=== PATIENT | male | born 1995 | race Caucasian/White ===

== ENCOUNTER 2018-10-29 12:12 | Observation (INO) ==
[2018-10-29] MEDS ORDERED: ZOFRAN IV ONE (12:48)
[2018-10-29] MEDS ORDERED: NS 1,000 ML IV ONE ×2 (12:48→15:29)
[2018-10-29] MEDS ORDERED: KEPPRA 1,000 MG in NS 100 ML IV ONE (12:49)
--- NOTE | 2018-10-29 12:55 | PROVIDER DOCUMENTATION ---
HPI-Neurological Disorder - General Chief Complaint: Dizziness Stated Complaint: VOMITING / DIZZY Time Seen by Provider: 10/29/18 12:27 Source: patient, family Allergies/Adverse Reactions: Patient Allergies Allergy/AdvReac Type Severity Reaction Status Date / Time No Known Allergies Allergy Verified 10/29/18 12:30 Home Medications: Home Medication List Medication Instructions Recorded Confirmed Last Taken Type Oxcarbazepine 750 mg PO QAM 02/27/16 10/29/18 Unknown History Divalproex [Depakote] 1,000 mg PO QHS 10/29/18 10/29/18 Unknown History Oxcarbazepine 900 mg PO QHS 10/29/18 10/29/18 Unknown History - History of Present Illness-Neuro Nature of Presenting Problem: reports having episodic blurred vision since yesterday, happening at work [place] in the morning. associated with n/vomiting, dizziness. denied fever chills, focal weakness. girlfriend at bedside, states that this morning when he woke up, his eyes were moving fast. history of seizure is currently on medication. Review of Systems - Adult - REVIEW OF SYSTEMS - ADULT Constitutional: reports: no symptoms reported Eyes: reports: no symptoms reported Ears, Nose, Mouth & Throat: reports: no symptoms reported Cardiovascular: reports: no symptoms reported Respiratory: reports: no symptoms reported Gastrointestinal: reports: no symptoms reported Genitourinary: reports: no symptoms reported Musculoskeletal: reports: no symptoms reported Integumentary: reports: no symptoms reported Neurological: reports: no symptoms reported Psychiatric: reports: no symptoms reported Endocrine: reports: no symptoms reported Hematologic/Lymphatic: reports: no symptoms reported Allergic/Immunologic: reports: no symptoms reported All Other Systems: Reviewed and Negative Past History - Adult - PAST MEDICAL HISTORY-ADULT Review of Records: reports: Old Records Reviewed, Nursing Assessment Review, Medications Reviewed, Social history reviewed & non-contributory. Major Childhood Illnesses: reports: denies history Cardiovascular: reports: denies history Respiratory: reports: denies history Gastrointestinal: reports: denies history Obstetrical/Gynecological: reports: denies history Genitourinary: reports: denies history Musculoskeletal: reports: denies history Neurological: reports: Seizures/Epilepsy Endocrine/Immune: reports: denies history Other Conditions: reports: denies history - IMMUNIZATION STATUS Childhood Immunizations: See Nurse Assessment Flu Vaccine: See Nurse Assessment - FAMILY HISTORY Family History: reviewed, not pertinent - SOCIAL HISTORY Smoking: denies Substance Use: none/never Alcohol Use Frequency: never Living Situation: family Physical Exam- Neurological - Physical Exam-Neuro Initial Vital Signs Reviewed: Yes General Appearance: appears well, alert, no apparent distress Eye Exam: bilateral eye: normal inspection, PERRL, EOMI HENMT: normocephalic/atraumatic, normal ENT inspection, other (slightly dry mucous membrane) Head Injury: no evidence of injury Neck: non-tender, full range of motion, supple Respiratory: chest non-tender, lungs clear, normal breath sounds Cardiovascular: normal peripheral pulses, regular rate, rhythm, no edema Abdominal Exam: normal bowel sounds, non tender, soft, no organomegaly Peripheral Pulses: radial (R): 2+, radial (L): 2+, dorsalis-pedis (R): 2+, dorsalis-pedis (L): 2+ Extremity: normal range of motion, non-tender, normal gait casualty insurance claim adjuster Exam: normal hearing, other (slow speech) Coordination/Gait: normal finger to nose, normal gait, negative Romberg's sign Motor/Sensory: no motor deficit, no sensory deficit, no pronator drift Neurologic: grossly normal, no motor/sensory deficits Integumentary: normal color, normal turgor, warm/dry Psych/Mental Status: normal mood/affect, normal thought content, normal thought process, oriented x 3 - Glascow Coma Scale Best Eye Response: (4) open spontaneously Best Verbal Response: (5) oriented Best Motor Response: (6) obeys commands Progress - PLAN OF CARE/RESULTS Progress/Plan/Lab Results: Vital Signs - 8 hr 10/29/18 12:16 10/29/18 12:35 10/29/18 13:38 Temperature 97.8 F Pulse Rate 94 H 73 Pulse Rate [Sitting] 93 H Pulse Rate [Standing] 95 H Pulse Rate [Supine] 95 H Respiratory Rate 18 16 Blood Pressure 144/90 133/77 Blood Pressure [Sitting] 139/87 Blood Pressure [Standing] 170/149 Blood Pressure [Supine] 156/89 O2 Sat by Pulse Oximetry 97 95 10/29/18 14:29 Temperature 98 F Pulse Rate 86 Pulse Rate [Sitting] Pulse Rate [Standing] Pulse Rate [Supine] Respiratory Rate 14 Blood Pressure 121/77 Blood Pressure [Sitting] Blood Pressure [Standing] Blood Pressure [Supine] O2 Sat by Pulse Oximetry 95 Laboratory Results - last 24 hr 10/29/18 10/29/18 10/29/18 12:37 12:37 12:37 WBC 11.77 H RBC 4.84 Hgb 15.1 Hct 40.8 L MCV 84.3 MCH 31.2 H MCHC 37.0 RDW Std Deviation 12.4 Plt Count 243 MPV 9.6 Immature Gran % (Auto) 0.2 Neut % (Auto) 76.5 H Lymph % (Auto) 14.7 L Mcdonald % (Auto) 8.2 Eos % (Auto) 0.3 Baso % (Auto) 0.1 Immature Gran # (Auto) 0.02 Neut # (Auto) 9.01 H Lymph # (Auto) 1.73 Mcdonald # (Auto) 0.96 H Eos # (Auto) 0.04 Baso # (Auto) 0.01 Sodium 131 L Potassium 4.3 Chloride 93 L Carbon Dioxide 25 Anion Gap 13 BUN 5 L Creatinine 0.6 L Estimated GFR/1.73 m2 > 60 BUN/Creatinine Ratio 8 Glucose 132 H POC Glucose 125 H Calculated Osmolality 262 Calcium 9.1 Lipase Urine Source Urine Color Urine Clarity Urine Turbidity Urine pH Ur Specific Clifford Urine Protein Ur Glucose (Stick) Urine Ketones Ur Ketones (Stick) Urine Blood Urine Nitrite Urine Bilirubin Urine Urobilinogen Urobilinogen Dipstick Urine Leukocytes Urine WBC (Auto) Urine RBC (Auto) U Epithel Cells (Auto) Urine Bacteria (Auto) Urine Microscopic RBC Urine WBC Urine Microscopic WBC Ur Epithelial Cells Urine Bacteria Urine Glucose Urine Opiates Screen Ur Oxycodone Screen Urine Methadone Screen Ur Methadone, Qual U Propoxyphene Qual Ur Barbiturates Screen Ur Barbituates Screen Valproic Acid Ur Tricyclics Screen Ur Phencyclidine Scrn Ur Amphetamines Screen U Methamphetamines Scrn U Benzodiazepines Scrn Urine Cocaine Screen U Cannabinoids Screen 10/29/18 10/29/18 10/29/18 12:37 12:37 13:35 WBC RBC Hgb Hct MCV MCH MCHC RDW Std Deviation Plt Count MPV Immature Gran % (Auto) Neut % (Auto) Lymph % (Auto) Mcdonald % (Auto) Eos % (Auto) Baso % (Auto) Immature Gran # (Auto) Neut # (Auto) Lymph # (Auto) Mcdonald # (Auto) Eos # (Auto) Baso # (Auto) Sodium Potassium Chloride Carbon Dioxide Anion Gap BUN Creatinine Estimated GFR/1.73 m2 BUN/Creatinine Ratio Glucose POC Glucose Calculated Osmolality Calcium Lipase 15 Urine Source Cancelled Urine Color Cancelled Urine Clarity Urine Turbidity Cancelled Urine pH Cancelled Ur Specific Clifford Cancelled Urine Protein Cancelled Ur Glucose (Stick) Cancelled Urine Ketones Ur Ketones (Stick) Cancelled Urine Blood Cancelled Urine Nitrite Cancelled Urine Bilirubin Cancelled Urine Urobilinogen Urobilinogen Dipstick Cancelled Urine Leukocytes Cancelled Urine WBC (Auto) Cancelled Urine RBC (Auto) Cancelled U Epithel Cells (Auto) Cancelled Urine Bacteria (Auto) Cancelled Urine Microscopic RBC Urine WBC Urine Microscopic WBC Ur Epithelial Cells Urine Bacteria Urine Glucose Urine Opiates Screen Ur Oxycodone Screen Urine Methadone Screen Ur Methadone, Qual U Propoxyphene Qual Ur Barbiturates Screen Ur Barbituates Screen Valproic Acid 133.20 H* Ur Tricyclics Screen Ur Phencyclidine Scrn Ur Amphetamines Screen U Methamphetamines Scrn U Benzodiazepines Scrn Urine Cocaine Screen U Cannabinoids Screen 10/29/18 10/29/18 10/29/18 13:35 13:35 13:35 WBC RBC Hgb Hct MCV MCH MCHC RDW Std Deviation Plt Count MPV Immature Gran % (Auto) Neut % (Auto) Lymph % (Auto) Mcdonald % (Auto) Eos % (Auto) Baso % (Auto) Immature Gran # (Auto) Neut # (Auto) Lymph # (Auto) Mcdonald # (Auto) Eos # (Auto) Baso # (Auto) Sodium Potassium Chloride Carbon Dioxide Anion Gap BUN Creatinine Estimated GFR/1.73 m2 BUN/Creatinine Ratio Glucose POC Glucose Calculated Osmolality Calcium Lipase Urine Source CLEAN CATCH Urine Color YELLOW Urine Clarity SLIGHTLY CLOUDY A Urine Turbidity Urine pH 6.5 Ur Specific Clifford 1.020 Urine Protein 1+(30 mg/dL) A Ur Glucose (Stick) Urine Ketones 1+(Small) A Ur Ketones (Stick) Urine Blood NEGATIVE Urine Nitrite NEGATIVE Urine Bilirubin NEGATIVE Urine Urobilinogen NORMAL Urobilinogen Dipstick Urine Leukocytes Urine WBC (Auto) Urine RBC (Auto) U Epithel Cells (Auto) Urine Bacteria (Auto) Urine Microscopic RBC Not Reportable Urine WBC TRACE A Urine Microscopic WBC 10-20 A Ur Epithelial Cells <10 Urine Bacteria 1+ Urine Glucose NEGATIVE Urine Opiates Screen Cancelled NONE DETECTED Ur Oxycodone Screen Cancelled NONE DETECTED Urine Methadone Screen NONE DETECTED Ur Methadone, Qual Cancelled U Propoxyphene Qual NONE DETECTED Ur Barbiturates Screen Cancelled Ur Barbituates Screen NONE DETECTED Valproic Acid Ur Tricyclics Screen NONE DETECTED Ur Phencyclidine Scrn Cancelled NONE DETECTED Ur Amphetamines Screen Cancelled NONE DETECTED U Methamphetamines Scrn NONE DETECTED U Benzodiazepines Scrn Cancelled NONE DETECTED Urine Cocaine Screen Cancelled NONE DETECTED U Cannabinoids Screen Cancelled PRESUMPTIVE POSITIVE A Orders Category Date Time Status Orthostatic Vital Signs NOW Care 10/29/18 12:[address] HEAD W/O CONTRAST [CT] Stat Exams 10/29/18 12:50 Completed AMMONIA [CHEM] Stat Lab 10/29/18 14:58 Uncollected BMP [BASIC METABOLIC PANEL] [CHEM] Stat Lab 10/29/18 12:37 Completed CBC WITH ELECTRONIC DIFF [HEME] Stat Lab 10/29/18 12:37 Completed Depakote [VALPROIC ACID] [TDM] Stat Lab 10/29/18 12:37 Completed LFT [HEPATIC FUNCTION] [CHEM] Stat Lab 10/29/18 13:35 Received LIPASE [CHEM] Stat Lab 10/29/18 12:[address] W/POSS RFLX CULT [URINALYSIS] Stat Lab 10/29/18 13:35 Completed URINE CULTURE [RM] Routine Lab 10/29/18 14:22 Or[address] DRUG SCREEN [address] Stat Lab 10/29/18 13:35 Completed 0.9% Sodium Chloride Inj [Ns] 1,000 ml Med 10/29/18 12:48 Discontinued IV 999 mls/hr Levetiracetam [Keppra] 1,000 mg Med 10/29/18 12:49 Discontinued 0.9% Sodium Chloride Inj [Ns] 100 ml IV NOW Ondansetron [Zofran] Med 10/29/18 12:48 Discontinued [address] [facility] - [address] , [address], [place] [address] [facility] - [address] [place] [address] Department of Imaging Patient: SILVER OLEARY ADM Date: 10/29/18 MR#: [id number] : 1995 ADM Status: PRE ER Age/Sex: 22/M Room/Bed: Loc: .ED Ordering Physician: Kathy Alvarado MD Family Physician: Alexis Valle. Reason for Procedure: dizziness __ _ Signed EXAM: CT HEAD W/O CONTRAST 10/29/2018 HISTORY: dizziness TECHNIQUE: This exam was performed using automated exposure control, adjustment of mA or kV according to patient size, and/or use of iterative reconstruction technique. COMMENT: There is no evidence of mass effect, bleed, or abnormal extra-axial fluid collection. There is mucosal thickening and fluid in some of the ethmoid air cells. The calvarium is intact. IMPRESSION: Mild ethmoid sinusitis. No evidence of acute intracranial disease. Electronically signed by Gama Valdes 10/29/2018 1:14 PM 10/29/18 1314 Interpreting Physician: Gama Valdes MD Dictated Date/Time: 10/29/18 1313 cc: Kathy Alvarado MD; Alexis Valle. Result Diagrams: 10/29/18 12:37 10/29/18 12:37 - REASSESSMENT Reassessment #1 Status: other (nad, vss, ekg normal, head ct normal. pt admits mistakenly taken one 1000mg x1 divalproex the night before the blurred vision. no level check for 1.5 yrs now. last THC used was almost ago. will contact poison control for recommendation, and admitting pt to hospital.) Reassessment #2 Status: other (supportive care from poison control, check depakote level q4hr until level off. no l-carnitine level at this point per poison control.) - CONSULTS/PCP/HOSPITALIST Notification #1 *Consult/PCP/Hospitalist*: Dr. Vasques Time Discussed: 15:00 (recommend poison control) Consult Disposition: Admit Departure - Departure Date of Disposition Decision: 10/29/18 Time of Disposition Decision: 14:23 DIAGNOSIS: Tetrahydrocannabinol (THC) use disorder, mild, abuse, Seizure, Valproic acid toxicity Disposition: HOME 01 Certified Medical Emergency: Emergent Condition: Stable Referrals and Follow-Ups: Alexis Valle [Primary Care Provider] - Call for Appoint. 1-2days Work Excuses: Return to School/Parent Work Discharge Education: Near-Syncope, [id number], Seizure, Adult, [id number] - Critical Care Note This patient required my direct & personal management of CC.: No Attestation - Physician/ JERED Attestation The physician spent face to face time with patient:: Yes Advanced Practice Provider documentation review:: Supervising physician onsite and consulted in the evaluation and care of this patient. The physician did have a face to face encounter with the patient.
--- NOTE | 2018-10-29 13:17 | Diag Imaging Result Doc PS360 ---
EXAM: CT HEAD W/O CONTRAST 10/29/2018 HISTORY: dizziness TECHNIQUE: This exam was performed using automated exposure control, adjustment of mA or kV according to patient size, and/or use of iterative reconstruction technique. COMMENT: There is no evidence of mass effect, bleed, or abnormal extra-axial fluid collection. There is mucosal thickening and fluid in some of the ethmoid air cells. The calvarium is intact. IMPRESSION: Mild ethmoid sinusitis. No evidence of acute intracranial disease. Electronically signed by Gama Valdes 10/29/2018 1:14 PM
--- NOTE | 2018-10-29 13:22 | ED EKG INTERP ---
This chart was entered by Lauren Vaughn Scribe, acting as scribe for Serena Vinson MD. EKG Interpretation - EKG Time of EKG reading by physician:: 12:34 EKG Read and Signed by:: Serena Vinson EKG Interpretation (*Must complete 3 of following elements*): Normal Rate: 87 Rhythm: normal sinus rhythm [place]: normal QRS: normal SC Interval: normal ST Wave: normal Comments: normal ECG Attestation - Physician/ JERED Attestation The physician spent face to face time with patient:: No Advanced Practice Provider documentation review:: Supervising physician onsite and consulted in the evaluation and care of this patient. The physician did not have a face to face encounter with the patient. This chart was documented by the indicated scribe, (Lauren Vaughn Scribe) and accurately reflects the services I performed and decisions made by Alisson martinez Aslam A., MD, as attested by the provider's signature.
[2018-10-29 13:30] LABS: BASO# 0.01 X1000 (0.0-0.2); BASO% 0.1 % (0.0-0.8); EOS# 0.04 X1000 (0.0-0.7); EOS% 0.3 % (0.0-10.0); HEMATOCRIT 40.8 % (42.0-52.0); HEMOGLOBIN 15.1 g/dL (14.0-18.0); IMM GRAN# 0.02 X1000 (0.0-0.04); IMM GRAN% 0.2 % (0.0-0.5); LYMPH# 1.73 X1000 (1.2-3.4); LYMPH% 14.7 % (20.5-51.1); MCH 31.2 PG (27-31); MCV 84.3 FL (81-99); MONO# 0.96 X1000 (0.11-0.59); MONO% 8.2 % (1.7-9.3); MPV 9.6 FL (7.4-10.4); NEUT# 9.01 X1000 (1.4-6.5); NEUT% 76.5 % (42.2-75.2); PLT 243 X1000 (130-400); RBC 4.84 XMIL (4.7-6.1); RDW 12.4 % (11.5-14.5); WBC 11.77 X1000 (4.8-10.8)
[2018-10-29 13:32] LABS: CHLORIDE 93 mmol/L (98-107); POTASSIUM 4.3 mmol/L (3.5-5.1); SODIUM 131 mmol/L (136-145)
[2018-10-29 13:33] LABS: AGAP 13; BUN 5 mg/dL (8-22); CALCIUM 9.1 mg/dL (8.8-10.2); COSMO 262; CREATININE 0.6 mg/dL (0.7-1.2); ESTIMATED GFR > 60; GLUCOSE 132 mg/dL (70-104); TCO2 25 mmol/L (25-35)
[2018-10-29 14:12] LABS: URINE SOURCE CLEAN CATCH
[2018-10-29 14:20] LABS: UR AMPHETAMINES QUAL NONE DETECTED (NONE DETECT); UR BARBITUATES QUAL NONE DETECTED (NONE DETECT); UR BENZODIAZEPIN QUAL NONE DETECTED (NONE DETECT); UR CANNABINOIDS QUAL PRESUMPTIVE POSITIVE (NONE DETECT); UR COCAINE QUAL NONE DETECTED (NONE DETECT); UR METHADONE QUAL NONE DETECTED (NONE DETECT); UR METHAMPHETAMINE QUAL NONE DETECTED (NONE DETECT); UR OPIATES QUAL NONE DETECTED (NONE DETECT); UR OXYCODONE QUAL NONE DETECTED (NONE DETECT); UR PCP QUAL NONE DETECTED (NONE DETECT); UR PROPOXYPHENE QUAL NONE DETECTED (NONE DETECT); UR TCA QUAL NONE DETECTED (NONE DETECT)
[2018-10-29 14:21] LABS: BILIRUBIN URINE NEGATIVE (NEGATIVE); BLOOD URINE NEGATIVE (NEGATIVE); CLARITY SLIGHTLY CLOUDY (CLEAR); COLOR YELLOW; GLUCOSE URINE NEGATIVE (NEGATIVE); KETONE URINE 1+(Small) mg/dL (NEGATIVE); PH URINE 6.5; URINE BACTERIA 1+ /HFP; URINE EPITHELIAL CELLS <10 /HPF (<10)
[2018-10-29 14:22] LABS: LEUKOCYTES URINE TRACE (NEGATIVE); NITRITE URINE NEGATIVE (NEGATIVE); PROTEIN URINE 1+(30 mg/dL) mg/dL (NEGATIVE); UROBILINOGEN URINE NORMAL
[2018-10-29 15:09] LABS: ALBUMIN 5.3 g/dL (3.5-5.0); ALKALINE PHOSPHATASE 61 U/L (32-122); DIRECT BILIRUBIN < 0.20 mg/dL (0.00-0.20); GOT 28 U/L (10-34); GPT 23 U/L (10-44); TOTAL PROTEIN 7.8 g/dL (6.3-8.3)
[2018-10-29 15:22] LABS: BLOOD TYPE ARTERIAL; SAMPLE BLOOD
[2018-10-29 15:23] LABS: BE 0.7 mmoll (-3.0-3.0); HCO3-(ACT) 25.3 mmoll (20.0-26.0); METHB 1.3 % (0.0-1.5); O2(CT) 20.4 mL/dL (15.0-23.0); O2HB 92.8 % (95.0-99.0); PCO2(98.6) 40 mmHg (35-45); PO2(98.6) 91 mmHg (60-100); SAO2 98.4 % (95.0-100.0); THB 15.6 g/dL (11.5-17.4); pH(98.6) 7.41 (7.35-7.45)
[2018-10-29 15:25] LABS: ALLEN TEST YES; MODALITY ROOM AIR
[2018-10-29] MEDS ORDERED: ZOFRAN IV PRN (15:33)
[2018-10-29] MEDS: NS 1,000 ML IV SCH ×2 (15:46→23:22)
--- NOTE | 2018-10-29 17:40 | HISTORY AND PHYSICAL ---
PRIMARY CARE PROVIDER: Dr. Alexis Valle. CHIEF COMPLAINT: The patient has intractable vomiting and dizziness. HISTORY OF PRESENT ILLNESS: This is a 22-year-old male that states he blurred vision 10/28/2018 in the morning. The patient also has had intractable nausea and vomiting with associated dizziness. He has a history of seizures and is currently taking Depakote. His laboratory findings in the emergency room were of a valproic acid of 133.2 with normal being 50 to 100. The patient was also positive for cannabinoids. CT of head showed mild ethmoid sinusitis, 0 anterior cranial disease. EKG was normal sinus rhythm with a rate of 87. PAST MEDICAL HISTORY: Includes epilepsy and seizures. PAST SURGICAL HISTORY: The patient denies any surgical history. FAMILY HISTORY: Patient states he has no relevant family history. SOCIAL HISTORY: The patient does drink occasional alcohol. States that he smokes about 5 cigarettes a day and last used marijuana approximately 1 month ago. The patient states he lives with his family. ALLERGIES: No known drug allergies. HOME MEDICATIONS: Oxcarbazepine 750 mg p.o. q.a.m., divalproex or Depakote 1000 mg p.o. at bedtime, and oxcarbazepine 900 mg p.o. at bedtime. REVIEW OF SYSTEMS: General: Patient denies fever, chills, or flu-like symptoms. HEENT: Patient denies congestion, headaches. Patient is positive for blurred vision. Patient denies neck pain or neck stiffness. Endocrine: Denies excessive thirst, urination, or intolerance to heat and cold. Cardiovascular: Patient denies palpitations, chest pain, orthopnea, or lower leg edema. Respiratory: Patient denies cough, shortness of breath on exertion, or hemoptysis. GI: The patient does state that he has had intractable nausea and vomiting. The patient denies diarrhea or constipation. : Patient denies frequency, urgency, or burning, or hematuria. Musculoskeletal: Patient denies any weakness. Neurologic: The patient was positive for dizziness. The patient denies any recent seizures. Hematologic: Patient denies bruising. Psych: Denies any history of mental illness or depression. Skin: Denies any skin rash or lesions. LABORATORY: The patient's WBCs are 11.77, hemoglobin and hematocrit are 15.1 and 40.8. Blood gas shows a pH of 7.41, pCO2 of 40, PO2 91, HC03 of 25.3, oxyhemoglobin was 92.8. Sodium was 131, potassium of 4.3, chloride of 93, BUN of 5, and creatinine of 0.6. Glucose 132. AST 20, ALT 23. Urine was positive for +1 protein, +1 ketones, trace amount of WBCs, glucose was negative. Valproic acid was 133.20. Cannabinoid screen was presumptive positive. Patient's EKG showed normal sinus rhythm with a rate of 87. CT of the head showed mild ethmoid sinusitis, no evidence of acute intracranial disease. PHYSICAL EXAMINATION: VITAL SIGNS: Temperature 98 degrees, heart rate 90, respirations 20, blood pressure 141/88, 95% on room air. GENERAL: This is a 22-year-old male, well appearing. HEENT: Normocephalic. PERRLA. Mucous membranes moist. NECK: No lymphadenopathy noted. Trachea is midline. No JVD noted. CARDIOVASCULAR: No murmurs, gallops, rubs. Rate and rhythm regular. RESPIRATORY: Lung sounds clear to auscultation in all hickey. Nonlabored respirations with no accessory muscle use. GI: Soft and nontender to palpation. Bowel sounds x4 quadrants. NEUROLOGIC: Cranial nerves 2-12 grossly intact. The patient had no nystagmus or rapid eye movements. MUSCULOSKELETAL: Strength 5/5 in all 4 extremities. Extremities have no edema noted. Pulses strong and palpable to bilateral feet and radial pulses. SKIN: Warm, dry, and intact. ASSESSMENT: 1. Intractable nausea and vomiting. 2. Elevated valproic acid. 3. Tobacco abuse. 4. Substance abuse. PLAN: admit to [place]. obtain orthostatic vital signs. obtain a urine culture. valproic acid levels at 8:30 and 6 a.m. IV fluids normal saline at 150 mL an hour, Zofran 4 mg IV q.4 hours. Further recommendations will be pending per clinical course and response to therapy. Dictated by AYLIN Bell for Wicho Powers MD Addendum: Patient seen and examined by myself. Agree with AYLIN note. It reflects my assessment and plan. Patient is being admitted to hospital for intractable nausea and vomiting. His valproic acid is elevated so will start IV fluids and will check Valproic acid levels later today and tomorrow morning. If those are normal will discharge him tomorrow. cc: Wicho Powers MD [facility]
[2018-10-30] MEDS: NS 1,000 ML IV SCH (05:40)
--- NOTE | 2018-10-30 09:17 | EKG Report ---
Test Performed on : 10/29/2018 12:34:52 PM Test Reason : ER Blood Pressure : / mmHG Vent. Rate : 087 BPM Atrial Rate : 087 BPM P-R Int : 138 ms QRS Dur : 092 ms QT Int : 380 ms P-R-T Axes : 056 036 023 degrees QTc Int : 457 ms Normal sinus rhythm. Normal ECG No previous ECGs available Unconfirmed Result
[2018-10-30 10:01] VITALS: BP 130/72
--- NOTE | 2018-10-30 22:06 | DISCHARGE SUMMARY ---
ADMISSION DATE: 10/29/2018 DISCHARGE DATE: 10/30/2018 PRIMARY CARE PHYSICIAN: Alexis Valle ADMISSION DIAGNOSES: 1. THC use disorder. 2. Positive seizure. 3. Positive valproic acid toxicity. DISCHARGE DIAGNOSES: 1. THC use disorder. 2. Seizure. 3. Valproic acid toxicity. PROCEDURES AND FINDINGS: This was a 22-year-old male that states that he had blurred vision starting on 10/28/2018 in the morning. The patient also states he had intractable nausea and vomiting with associated dizziness. Has a history of seizures and is currently taking Depakote. The patient's laboratory findings in the emergency room with a valproic acid of 133.2, and patient was also positive for cannabinoids. The patient's CT of the head showed ethmoid sinusitis. No anterior cranial disease. EKG was normal sinus rhythm with a rate of 77. HOSPITAL COURSE: The patient was admitted to [place] and monitored for valproic levels as well as given normal saline at 100 mL an hour and administered Zofran as necessary for nausea. The patient was also on a regular diet and I have obtained orthostatic vital signs. Patient's discharge lab shows a valproic acid of 94.6 on 10/29 at 8:30, and then at 6 a.m. subsequent valproic acid was down to 81.30. DISCHARGE MEDICATIONS: Include Depakote 1000 mg p.o. at bedtime, oxcarbazepine 300 mg tablet 900 mg p.o. at bedtime and 750 mg p.o. q.a.m. DISCHARGE INSTRUCTIONS: The patient will be discharged on a regular diet with activity of ad ayden. The patient to be discharged to home for self-care. The patient is to follow up with the PCP, Dr. Alexis Valle in 2 weeks and he is to call for an appointment in 1 to 2 days. Cessation of cannabinoid use was encouraged and the patient instructed to call PCP for further questions or concerns. All discharge instructions were reviewed with the patient and he verbalized understanding. Dictated by AYLIN Bell for Wicho Powers MD cc: MD Alexis Watkins
== END 2018-10-30 10:50 | disposition home or self-care (01) ==
LOC: P.ED 12:12 → P.MEDSURG 12:12
PROVIDERS: ATTEND Internal Medicine
CPT/HCPCS: 70450; 80048; 80076; 80101; 80104; 80164; 80165; 80301; 80305; 80307; 80324; 80345; 80346; 80353; 80358; 80361; 80365; 81001; 82140; 82805; 82948; 83690; 83992; 85025; 87088; 93005; G0431; G0434; G0477; G0479; G0480; J1953; J2405; J7030; XXXXX

== ENCOUNTER 2019-03-25 18:22 | Observation (INO) ==
[2019-03-25 20:53] LABS: BASO# 0.02 X1000 (0.0-0.2); BASO% 0.2 % (0.0-0.8); EOS# 0.08 X1000 (0.0-0.7); EOS% 0.8 % (0.0-10.0); HEMATOCRIT 40.9 % (42.0-52.0); HEMOGLOBIN 14.3 g/dL (14.0-18.0); IMM GRAN# 0.03 X1000 (0.0-0.04); IMM GRAN% 0.3 % (0.0-0.5); LYMPH# 2.24 X1000 (1.2-3.4); MCH 30.1 PG (27-31); MCV 86.1 FL (81-99); MONO# 1.66 X1000 (0.11-0.59); MPV 8.6 FL (7.4-10.4); NEUT# 5.72 X1000 (1.4-6.5); NEUT% 58.7 % (42.2-75.2); PLT 218 X1000 (130-400); RBC 4.75 XMIL (4.7-6.1); RDW 11.9 % (11.5-14.5); WBC 9.75 X1000 (4.8-10.8)
[2019-03-25] MEDS ORDERED: CLINDAMYCIN IM ONE (21:00)
--- NOTE | 2019-03-25 21:05 | PROVIDER DOCUMENTATION ---
HPI-EENT General - General Chief Complaint: Abscess Stated Complaint: MOUTH PAIN Time Seen by Provider: 03/25/19 19:33 Source: patient Allergies/Adverse Reactions: Patient Allergies Allergy/AdvReac Type Severity Reaction Status Date / Time No Known Allergies Allergy Verified 10/29/18 12:30 Home Medications: Home Medication List Medication Instructions Recorded Confirmed Last Taken Type Oxcarbazepine 750 mg PO QAM 02/27/16 10/29/18 Unknown History Divalproex [Depakote] 1,000 mg PO QHS 10/29/18 10/29/18 Unknown History Oxcarbazepine 900 mg PO QHS 10/29/18 10/29/18 Unknown History - History of Present Illness-EENT General Nature of Presenting Problem: Patient is a 23yo M who presents with complaints of L lower jaw pain and swelling x2 weeks. Reports he is currently being treated for a dental abscess and is taking Amoxicillin for 2 weeks. States last night, his jaw began swelling. Reports no relief with OTC Tylenol/Motrin. Denies fever/chills, difficulty breathing, SOB, CP, or SOB. EENT Location: reports: mouth, dental Quality of Pain: reports: aching Severity: reports: moderate Onset/Duration: reports: other (2 weeks ago) Timing: reports: still present, getting worse Prearrival Treatment: Initiated over the counter meds, Initiated prescription meds (Amoxicillin) Associated Symptoms: reports: facial pain/swelling, tooth pain. denies: cough, fever, nasal congestion/drainage, sore throat Locality of Occurance: Home Similar Symptoms Previously?: No Recently seen or treated by another doctor?: Yes (saw dentist 2 weeks ago) - Throat/Dental Throat/Dental Problem Symptoms: reports: toothache (L lower), jaw pain (L lower) , swelling of jaw/face (L lower). denies: trouble breathing, unable to swallow Throat/Dental Problem Context: reports: dental decay Recently seen a dentist or have an appointment?: Yes (saw dentist 2 weeks ago) Review of Systems - Adult - REVIEW OF SYSTEMS - ADULT Constitutional: reports: no symptoms reported. denies: chills, fever Eyes: reports: no symptoms reported Ears, Nose, Mouth & Throat: reports: see HPI, mouth/dental pain, other (L lower jaw swelling). denies: ear pain, throat pain, throat swelling Cardiovascular: reports: no symptoms reported. denies: chest pain, palpitations Respiratory: reports: no symptoms reported. denies: cough, dyspnea on exertion, shortness of breath Gastrointestinal: reports: no symptoms reported. denies: abdominal pain, nausea, vomiting Genitourinary: reports: no symptoms reported Musculoskeletal: reports: no symptoms reported. denies: back pain, neck pain Integumentary: reports: no symptoms reported Neurological: reports: no symptoms reported. denies: dizziness/vertigo, headache/migraines Psychiatric: reports: no symptoms reported Endocrine: reports: no symptoms reported Past History - Adult - PAST MEDICAL HISTORY-ADULT Review of Records: reports: Nursing Assessment Review, Medications Reviewed Major Childhood Illnesses: reports: denies history Cardiovascular: reports: denies history Respiratory: reports: denies history Gastrointestinal: reports: denies history Obstetrical/Gynecological: reports: denies history Genitourinary: reports: denies history Musculoskeletal: reports: denies history Neurological: reports: Seizures/Epilepsy Endocrine/Immune: reports: denies history Other Conditions: reports: denies history - IMMUNIZATION STATUS Childhood Immunizations: See Nurse Assessment Flu Vaccine: See Nurse Assessment - FAMILY HISTORY Family History: reviewed, not pertinent - SOCIAL HISTORY Smoking: cigarettes Provider spent 3-5 mins advising pt. on dangers of tobacco.: Discussed manners to quit use, and f/u contacts for add'l counseling. Physical Exam- EENT - Physical Exam EENT Initial Vital Signs Reviewed: Yes General Appearance: alert, mild distress. negative: lethargic, slow to respond, obtunded Eye Exam: bilateral eye: normal inspection, PERRL, EOMI Nasal Exam: normal inspection Throat Exam: dental tenderness (L lower; see picture), mandibular swelling (L). negative: excessive drooling, foreign body Mouth,Throat: 1 - tootache; dental abscess Neck: non-tender, full range of motion, supple, normal inspection Respiratory: chest non-tender, lungs clear, normal breath sounds, no pleuratic chest pain, no respiratory distress, no accessory muscle use. negative: crackles, rales, rhonchi, stridor, wheezing, retractions, splinting Cardiovascular: regular rate, rhythm, no gallop Back Exam: normal inspection Extremity: normal range of motion, non-tender, normal gait, normal inspection Integumentary: normal color, warm/dry. negative: cyanosis, laceration(s), mottled, pallor Neurologic: grossly normal. negative: abnormal gait, aphasia, EOM palsy Psych/Mental Status: normal mood/affect, normal thought content, normal thought process, oriented x 3 Progress - PLAN OF CARE/RESULTS Progress/Plan/Lab Results: Vital Signs - 8 hr 03/25/19 18:32 Temperature 97.6 F Pulse Rate 94 H Respiratory Rate 18 Blood Pressure 150/106 O2 Sat by Pulse Oximetry 99 Laboratory Results - last 24 hr 03/25/19 03/25/19 20:44 20:44 WBC 9.75 RBC 4.75 Hgb 14.3 Hct 40.9 L MCV 86.1 MCH 30.1 MCHC 35.0 RDW Std Deviation 11.9 Plt Count 218 MPV 8.6 Immature Gran % (Auto) 0.3 Neut % (Auto) 58.7 Lymph % (Auto) 23.0 Garland % (Auto) 17.0 H Eos % (Auto) 0.8 Baso % (Auto) 0.2 Immature Gran # (Auto) 0.03 Neut # (Auto) 5.72 Lymph # (Auto) 2.24 Garland # (Auto) 1.66 H Eos # (Auto) 0.08 Baso # (Auto) 0.02 Sodium 130 L Potassium 4.0 Chloride 89 L Carbon Dioxide 27 Anion Gap 14 BUN 9 Creatinine 0.7 Estimated GFR/1.73 m2 > 60 BUN/Creatinine Ratio 13 Glucose 95 Calculated Osmolality 259 Calcium 9.9 Total Bilirubin 0.20 AST 16 ALT 16 Alkaline Phosphatase 88 Total Protein 8.2 Albumin 5.0 Globulin 3.0 Albumin/Globulin Ratio 2.0 Orders Category Date Time Status Resuscitation Status Routine Care 03/25/19 22:34 Ordered Saline Loc NOW Care 03/25/19 20:[address] NECK W/CONTRAST [CT] Stat Exams 03/25/19 21:09 Completed CARBAMAZEPINE [HH] Stat Lab 03/25/19 22:14 Uncollected CBC WITH ELECTRONIC DIFF [HEME] Stat Lab 03/25/19 20:44 Completed COMPREHENSIVE METABOLIC PANEL [CHEM] Stat Lab 03/25/19 20:44 Completed VALPROIC ACID [TDM] Stat Lab 03/25/19 22:14 Uncollected Clindamycin Med 03/25/19 21:00 Discontinued 600 mg IM NOW ONE Transfer/Admit Order [TRANSFER] Routine Transfer 03/25/19 22:33 Ordered Lab results, imaging results, and need for admission discussed with patient who agrees with and verbalizes understanding. Plan of care discussed and formulated in conjunction with Dr. Damon who co- examined the patient. Result Diagrams: 03/25/19 20:44 03/25/19 20:44 - CT/MRI 1 CT Study: Neck Impression: See EMR Report ([facility] - [address] , [address], [place] [address] [facility] - [address] [place] [address] Department of Imaging Patient: SILVER OLEARYADM Date: 03/25/19MR#: [id number] : 1995ADM Status: REG ERAcct#: [id number] Age/Sex: 23/MRoom/Bed: Loc: P.ED Ordering Physician: Karlie Rodriguez Family Physician: None,PCP Reason for Procedure: L submandibular swelling Signed EXAM: CT NECK W/CONTRAST INDICATION: L submandibular swelling TECHNIQUE: This exam was performed using automated exposure control, adjustment of mA or kV according to patient size, and/or use of iterative reconstruction technique. COMPARISON: None. FINDINGS: The salivary glands and thyroid are unremarkable. There is subcutaneous soft tissue edema at the left side of the neck extending from the mandible to the level of the thyroid cartilage. There is adjacent thickening of the platysma muscle on the left. This indicates cellulitis. There is very little involvement of the deep spaces of the neck. 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 No loculated fluid is identified to indicate abscess. There are bilateral shotty lymph nodes, slightly more prominent on the left that are assumed to be reactive. The aerodigestive tract including the pharynx and larynx appear normal. There is residual thymic tissue in the anterosuperior mediastinum. The lung apices are unremarkable. IMPRESSION: Soft tissue edema at the left side of the neck as described indicating cellulitis. No discrete abscess is identified. Electronically signed by Roni Ulloa 03/25/2019 10:03 PM 03/25/192202 Interpreting Physician: Roni Ulloa MD Dictated Date/Time: 03/25/192155 cc: Karlie Mota; None,PCP) - CONSULTS/PCP/HOSPITALIST Notification #1 *Consult/PCP/Hospitalist*: Dr. Robbins, Hospitalist Time Discussed: 22:31 Reason/Comments: Facial cellulitis; dental abscess Consult Disposition: Admit Departure - Departure Date of Disposition Decision: 03/25/19 Time of Disposition Decision: 22:32 DIAGNOSIS: Dental abscess, Facial cellulitis, Hyponatremia Disposition: ADMITTED INPATIENT 09 Certified Medical Emergency: Emergent Condition: Stable Referrals and Follow-Ups: None,PCP [Primary Care Provider] - - Critical Care Note This patient required my direct & personal management of CC.: No Attestation - Physician/ JERED Attestation Patient care was provided by Advanced Practice Provider:: Yes Advanced Practice Provider:: Karlie Mota Advanced Practice Provider documentation review:: The Mid-level provider documentation, treatment plan and medical decision making was reviewed by the physician who agrees with all treatment and medical decision making by the P. The physician spent face to face time with patient:: Yes (Nelson) Advanced Practice Provider documentation review:: Supervising physician onsite and consulted in the evaluation and care of this patient. The physician did have a face to face encounter with the patient.
[2019-03-25 21:09] LABS: ESTIMATED GFR > 60
[2019-03-25 21:17] LABS: AGAP 14; ALKALINE PHOSPHATASE 88 U/L (32-122); BUN 9 mg/dL (8-22); CALCIUM 9.9 mg/dL (8.8-10.2); CHLORIDE 89 mmol/L (98-107); COSMO 259; CREATININE 0.7 mg/dL (0.7-1.2); GLUCOSE 95 mg/dL (70-104); GOT 16 U/L (10-34); GPT 16 U/L (10-44); SODIUM 130 mmol/L (136-145); TCO2 27 mmol/L (25-35); TOTAL PROTEIN 8.2 g/dL (6.3-8.3)
--- NOTE | 2019-03-25 22:05 | Diag Imaging Result Doc PS360 ---
EXAM: CT NECK W/CONTRAST INDICATION: L submandibular swelling TECHNIQUE: This exam was performed using automated exposure control, adjustment of mA or kV according to patient size, and/or use of iterative reconstruction technique. COMPARISON: None. FINDINGS: The salivary glands and thyroid are unremarkable. There is subcutaneous soft tissue edema at the left side of the neck extending from the mandible to the level of the thyroid cartilage. There is adjacent thickening of the platysma muscle on the left. This indicates cellulitis. There is very little involvement of the deep spaces of the neck. 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 No loculated fluid is identified to indicate abscess. There are bilateral shotty lymph nodes, slightly more prominent on the left that are assumed to be reactive. The aerodigestive tract including the pharynx and larynx appear normal. There is residual thymic tissue in the anterosuperior mediastinum. The lung apices are unremarkable. IMPRESSION: Soft tissue edema at the left side of the neck as described indicating cellulitis. No discrete abscess is identified. Electronically signed by Roni Ulloa 03/25/2019 10:03 PM
[2019-03-25] MEDS ORDERED: TORADOL IV ONE (23:44)
[2019-03-25] MEDS ORDERED: NS 1,000 ML IV ONE (23:44)
[2019-03-26] MEDS: CLINDAMYCIN 600 MG/D5W 600 MG/50 ML IVPB IV SCH ×3 (05:38→21:24)
[2019-03-26 07:52] LABS: AGAP 13; BUN 14 mg/dL (8-22); CALCIUM 9.4 mg/dL (8.8-10.2); CHLORIDE 89 mmol/L (98-107); COSMO 257; CREATININE 0.7 mg/dL (0.7-1.2); ESTIMATED GFR > 60; GLUCOSE 125 mg/dL (70-104); POTASSIUM 3.5 mmol/L (3.5-5.1); SODIUM 127 mmol/L (136-145); TCO2 25 mmol/L (25-35)
[2019-03-26] MEDS: NORCO-7.5 PO PRN ×3 (09:22→21:34)
[2019-03-26] MEDS: NS 1,000 ML IV SCH ×2 (12:08→19:33)
--- NOTE | 2019-03-26 13:39 | HISTORY AND PHYSICAL ---
ADDENDUM: Patient seen and examined by myself. Full note dictated and discussed with nurse practitioner. Patient presented to the ER with a known dental infection, left lower jaw pain and swelling for the past 2 weeks. States he has been on amoxicillin, but it has not helped. He was also noted to have a low sodium, which certainly can be related to his seizure medications. We are going to admit him to the hospital, place him on IV clindamycin, IV fluids, recheck his sodium, and will follow with you. cc: Colten Robbins MD
--- NOTE | 2019-03-26 14:39 | HISTORY AND PHYSICAL ---
CHIEF COMPLAINT: Mouth pain. HISTORY OF PRESENT ILLNESS: Mr. Sullivan is a 23-year-old male with a past medical history of epilepsy and seizures, who came to the ED complaining of left lower jaw pain and swelling. He reports being on amoxicillin for 2 weeks, but the swelling continues to worsen, and he was getting no pain relief with [id number] Tylenol or Motrin. He denies any fever, chills, chest pain, shortness of breath, nausea, vomiting, diarrhea. He did complain of a headache. He is admitted for failed outpatient treatment of dental abscess, and was initiated on IV antibiotics. PAST MEDICAL HISTORY: Epilepsy and seizures. PAST SURGICAL HISTORY: None. FAMILY HISTORY: Reviewed and noncontributory. SOCIAL HISTORY: Occasional alcohol. Continued tobacco use, marijuana use. He lives with family. ALLERGIES: No known drug allergies. HOME MEDICATIONS: 1. Depakote 1000 mg p.o. at bedtime. 2. Trileptal 900 mg p.o. at bedtime. 3. Trileptal 750 mg p.o. every a.m. REVIEW OF SYSTEMS: A 12-point review of systems was complete and negative, except for those mentioned in the HPI. PHYSICAL EXAMINATION: VITAL SIGNS: Temperature is 98.3 degrees, heart rate 89, respirations 16, blood pressure 119/69, O2 is 96% on room air. GENERAL: Mr. Sullivan is a 23-year-old male who is sitting up in the bed in no acute distress. HEENT: He does have some left mandibular swelling. PERRL. NECK: Supple. Trachea midline. CARDIOVASCULAR: S1, S2 appreciated. No murmurs, gallops, rubs noted. RESPIRATORY: Lung sounds are clear bilaterally. GASTROINTESTINAL: Soft, nontender, nondistended. Positive bowel sounds x4 quadrants. EXTREMITIES: The patient moves all extremities well. NEUROLOGIC: No focal deficits noted. DIAGNOSTIC DATA: Neck CT showed soft tissue edema on the left side of the neck, indicating cellulitis. No discrete abscess identified. LABORATORY DATA: White count 9, hemoglobin and hematocrit 14 and 40, platelet count is 218,000. Sodium 130, potassium 4.0, BUN 9, creatinine 0.7, blood glucose is 95. Valproic acid is 76.80. ASSESSMENT AND PLAN: 1. Left lower facial cellulitis with dental abscess. Will continue with intravenous antibiotics with clindamycin. However, neck CT does not show any obvious abscess. 2. Hyponatremia secondary to epilepsy and seizure medication. We will continue with intravenous fluids. Held his morning dose of seizure medications. 3. Epilepsy/seizures. Continue home medications. Further recommendation to follow physician evaluation, laboratory and diagnostic data. Dictated by AYLIN Zelaya for Colten Robbins MD cc: Colten Robbins MD
[2019-03-26] MEDS: TRILEPTAL PO SCH (21:23)
[2019-03-26] MEDS: DEPAKOTE PO SCH (21:24)
[2019-03-27] MEDS: NS 1,000 ML IV SCH ×2 (03:27→07:40)
[2019-03-27] MEDS: CLINDAMYCIN 600 MG/D5W 600 MG/50 ML IVPB IV SCH ×3 (05:27→21:58)
[2019-03-27] MEDS: NORCO-7.5 PO PRN ×3 (06:26→21:35)
[2019-03-27 06:34] LABS: HEMATOCRIT 36.7 % (42.0-52.0); HEMOGLOBIN 12.9 g/dL (14.0-18.0); MCH 29.8 PG (27-31); MCHC 35.1 g/dL (33-37); MCV 84.8 FL (81-99); MPV 8.5 FL (7.4-10.4); RBC 4.33 XMIL (4.7-6.1); RDW 11.7 % (11.5-14.5); WBC 9.06 X1000 (4.8-10.8)
[2019-03-27 07:17] LABS: AGAP 11; ALKALINE PHOSPHATASE 72 U/L (32-122); BUN 5 mg/dL (8-22); CALCIUM 9.1 mg/dL (8.8-10.2); CHLORIDE 93 mmol/L (98-107); COSMO 255; CREATININE 0.5 mg/dL (0.7-1.2); ESTIMATED GFR > 60; GLUCOSE 103 mg/dL (70-104); GOT 22 U/L (10-34); GPT 16 U/L (10-44); POTASSIUM 3.7 mmol/L (3.5-5.1); SODIUM 128 mmol/L (136-145); TCO2 24 mmol/L (25-35); TOTAL PROTEIN 6.7 g/dL (6.3-8.3)
[2019-03-27] MEDS: TRILEPTAL PO SCH ×2 (09:43→21:27)
[2019-03-27] MEDS ORDERED: NS 1,000 ML IV SCH (11:02)
--- NOTE | 2019-03-27 16:46 | PROGRESS NOTE ---
DATE: 03/27/2019 SUBJECTIVE: Patient has no complaints. States that his facial pain and swelling have improved although have not completely resolved. Denies any fevers or chills. OBJECTIVE: Temperature 97,5 degrees, pulse 72, respiratory rate 18, BP 142/85.General: Patient pleasant, in no respiratory distress. HEENT: Normocephalic. Neck: Supple. Cardiovascular: Regular rate. Chest: Clear. Abdomen: Soft. Extremities: Moves all extremities. Skin: His left lower jaw area although still swollen, still mildly erythematous and warm to the touch, yeast distiller, it is improved in all categories since admission. ASSESSMENT: 1. Left lower facial cellulitis due to dental cavity without abscess. 2. Hyponatremia secondary to his epilepsy medications. 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 PLAN: Continue antibiotics today. Follow his sodium. Recheck in the a.m. Hopefully home if improved. cc: Colten Robbins MD
[2019-03-27] MEDS: DEPAKOTE PO SCH (21:27)
[2019-03-28] MEDS: CLINDAMYCIN 600 MG/D5W 600 MG/50 ML IVPB IV SCH (05:25)
[2019-03-28] MEDS: NORCO-7.5 PO PRN ×2 (05:30→10:22)
[2019-03-28 08:03] VITALS: BP 144/89
[2019-03-28] MEDS: TRILEPTAL PO SCH (08:26)
--- NOTE | 2019-03-28 15:15 | DISCHARGE SUMMARY ---
ADMISSION DATE: 03/25/2019 DISCHARGE DATE: 03/28/2019 PRIMARY CARE PROVIDER: None. PERTINENT PROCEDURE: Neck CT: Soft tissue edema to the left side of the neck as described, indicating cellulitis. No discrete abscess identified. DISCHARGE DIAGNOSES: 1. Left lower facial cellulitis due to dental cavity without abscess. 2. Hyponatremia secondary to epilepsy medication. 3. 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 HOSPITAL COURSE: Briefly, Mr. Sullivan is a 23-year-old male with a past medical history of epilepsy and seizures, who came to the ED complaining of left lower jaw pain and swelling. He reported being on amoxicillin for 2 weeks, but continued to have swelling and was getting no pain relief with [id number] Tylenol or Motrin. Denied any fever or chills. He was admitted for failed outpatient treatment of dental cavity with facial cellulitis and initiated on IV antibiotics as well as hyponatremia secondary to his left epilepsy medication and initiated on IV fluids. Mr. Sullivan's facial pain and swelling have improved over the course of his hospital stay. His sodium slowly improved and he will be discharged home on p.o. clindamycin and Lincoln. VITAL SIGNS: Temperature is 97.5 degrees, heart rate 68, respirations 20, blood pressure 144/89, O2 is 97% on room air. DISCHARGE DIET: Regular. DISCHARGE MEDICATIONS: 1. Depakote 1000 mg p.o. at bedtime. 2. Trileptal 900 mg p.o. at bedtime. 3. Trileptal 750 mg p.o. q.a.m. 4. Clindamycin 300 mg p.o. t.i.d. x21 capsules. 5. Lincoln 7.5/325 one each p.o. q.8 hours p.r.n. x10 tablets. FOLLOW-UP: Mr. Sullivan is being discharged back home with self care. He is to take all medications as prescribed. He is to follow up with the primary care provider with the list that has been provided to him. He can return to the ED or call 911 for any worsening of symptoms. Dictated by AYLIN Zelaya for Colten Robbins MD cc: Colten Robbins MD
--- NOTE | 2019-03-28 18:38 | DISCHARGE SUMMARY ---
ADMISSION DATE: 03/25/2019 DISCHARGE DATE: 03/28/2019 DISCHARGE DIAGNOSIS: 1. Dental cavity. 2. Epilepsy. 3. Hyponatremia secondary to syndrome of inappropriate antidiuretic hormone secretion secondary to his seizure medications. 4. Hypertension. 5. Chronic medical noncompliance. CONSULTATIONS: None. PROCEDURES: None. BRIEF HOSPITAL COURSE: The patient is a 23-year-old male who presented to the hospital with a dental cavity. Thankfully, CT did not show any type of abscess. His sodium was noted to be low at 128 to 130. This felt to be secondary to his seizure medications. We did discuss with him that he needs to follow up outpatient with his provider of his seizure medication and consider changing medications. Thankfully, he had uneventful hospital course. He was placed on IV clindamycin which he tolerated well. The swelling on the left side of his face has all but disappeared and appears essentially equal to the right side of his face at this point. DISPOSITION: Patient will be discharged home with clindamycin p.o. Patient refused to go home without pain medication. We did discuss with him that pain medications are not a treatment for this and that he needs to follow up with a dentist. We did discharge him with #10 Evans pills to be taken every 8 to 12 hours but only as needed. TIME SPENT: Greater than 30 minutes was spent in total care. cc: Colten Robbins MD
== END 2019-03-28 12:11 | disposition home or self-care (01) ==
LOC: P.ED 18:22 → P.MEDSURG 18:23 → INTOOBSV 18:23
PROVIDERS: ATTEND Family Medicine